=== PATIENT | female | born 1960 ===

== ENCOUNTER 2017-07-20 11:16 | Emergency (ER) | payer MEDICAID ==
[2017-07-20 11:16] VITALS: BMI 34.9
--- NOTE | 2017-07-20 12:12 | C.PDOC ---
History Of Present Illness Patient is a 57 year old female presents to Emergency Department for evaluation of vaginal itching, burning and white vaginal discharge for the past week. Notes using over the counter Monistat for 3 days with moderate relief. Patient also states that she has had dysuria and urinary frequency for the past few days , and also noticed blood in her urine yesterday. Denies fever, chills, abdominal pain, nausea, vomiting, diarrhea, or back pain. Time Seen by Provider: 07/20/17 11:47 Chief Complaint (Nursing): Female Genitourinary History Per: Patient History/Exam Limitations: no limitations Onset/Duration Of Symptoms: Days Current Symptoms Are (Timing): Still Present Associated Symptoms: Urinary Symptoms. denies: Loss Of Appetite, Back Pain, Chest Pain, Constipation Alleviating Factors: OTC Meds Recent travel outside of the [place]: No Additional History Per: Patient Abnormal Vaginal Bleeding: No Past Medical History Reviewed: Historical Data, Nursing Documentation, Vital Signs Vital Signs: Last Vital Signs Temp 98.3 F 07/20/17 13:03 Pulse 80 07/20/17 13:03 Resp 20 07/20/17 13:03 BP 107/71 07/20/17 13:03 Pulse Ox 99 07/20/17 13:03 - Medical History PMH: HTN Denies: Chronic Kidney Disease - [facility] Procedures CLOSED ENDOSCOPIC BIOPSY OF LARGE INTESTINE (10/02/14) Family History: States: Unknown Family Hx - Social History Hx Alcohol Use: No Hx Substance Use: No - Immunization History Hx Tetanus Toxoid Vaccination: No Hx Influenza Vaccination: No Hx Pneumococcal Vaccination: No Review Of Systems Except As Marked, All Systems Reviewed And Found Negative. Constitutional: Negative for: Fever, Chills Gastrointestinal: Negative for: Nausea, Vomiting, Abdominal Pain, Diarrhea Genitourinary: Positive for: Dysuria, Frequency, Hematuria, Vaginal Discharge ( white), Other (vaginal itching and burning sensation). Negative for: Vaginal Bleeding, Pelvic Pain Musculoskeletal: Negative for: Back Pain Physical Exam - Physical Exam Appears: Non-toxic, No Acute Distress Skin: Normal Color, Warm, Dry Head: Atraumatic, Normacephalic Eye(s): bilateral: Normal Inspection Oral Mucosa: Moist Neck: Normal ROM, Supple Chest: Symmetrical Cardiovascular: Rhythm Regular, No Murmur Respiratory: Normal Breath Sounds, No Rales, No Rhonchi, No Wheezing Gastrointestinal/Abdominal: Soft, No Tenderness, No Guarding, No Rebound Pelvic: Normal External Exam, No Vaginal Bleeding, No Vaginal Discharge, No Cervical Motion Tenderness, No Cervix Open (cervix closed), No Adnexal Tenderness Extremity: Normal ROM Neurological/Psych: Oriented x3, Normal Speech ED Course And Treatment O2 Sat by Pulse Oximetry: 98 (RA) Pulse Ox Interpretation: Normal Medical Decision Making Medical Decision Making: Plan: * GC culture, Gential culture, Urine culture * Urinalysis * Reassess and disposition Patient remained afebrile alert and oriented with stable vital signs during ER evaluation. UA shows UTI. Patient feels comfortable going home and will be discharged. Patient given follow up instructions. Instructed to return to ER if symptoms worsen or new symptoms arise. Disposition Counseled Patient/Family Regarding: Diagnosis, Need For Followup, Rx Given - [facility]position [facility] Disposition: HOME/ ROUTINE Disposition Time: 12:46 Condition: STABLE Additional Instructions: Christina por dejarnos atenderlo hoy. Martinez proveedor fue PA Kennedy. Usted fue tratado por alfa infeccin del tracto urinario. [place] antibiticos dos veces al d a norberto 5 louis. Por favor nisha un seguimiento con martinez gineclogo para alfa evaluacin adicional. Christina por permitir que el equipo de [email or web address] sea parte de martinez cuidado hoy. Prescriptions: Benzocaine/Resorcinol [Vagisil Cream] 28 gm TP BID #1 cream..g. Ciprofloxacin [Cipro] 1 tab PO BID #10 tab Instructions: Urinary Tract Infection in Women (ED) Forms: [employer] (American) Print Language: SLOVENIAN - POA Present On Arrival: None - Clinical Impression Clinical Impression: UTI (urinary tract infection), Vaginal itching - PA / ROLL ICER MACHINE / Resident Statement MD/DO has reviewed & agrees with the documentation as recorded. - Scribe Statement The provider has reviewed the documentation as recorded by the Marshall Sargent All medical record entries made by the Ricardoibemilie were at my direction and personally dictated by me. I have reviewed the chart and agree that the record accurately reflects my personal performance of the history, physical exam, medical decision making, and the department course for this patient. I have also personally directed, reviewed, and agree with the discharge instructions and disposition.
[2017-07-20 12:28] LABS: RBC URINE 352 /hpf (0-3); URINE BILIRUBIN NEGATIVE (NEGATIVE); URINE BLOOD 3+ (NEGATIVE); URINE COLOR Yellow (YELLOW); URINE GLUCOSE (UA) NORMAL (Normal); URINE KETONE 1+ mg/dL (NEGATIVE); URINE LEUKOCYTE ESTERASE 3+ Leu/uL (Negative); URINE PROTEIN 2+ mg/dL (NEGATIVE); URINE UROBILINOGEN NORMAL mg/dL (0.2-1.0); WBC URINE 488 /hpf (0-5)
[2017-07-20 12:30] LABS: URINE BACTERIA FEW (<OCC)
[2017-07-20 13:04] VITALS: BP 107/71; PULSE 80; RESP 20; TEMP 98.3
[2017-07-20 16:48] VITALS: O2SAT 98
== END 2017-07-20 13:04 | disposition home or self-care (01) ==
LOC: C.ER 11:16
DX: N39.0 Urinary tract infection, site not specified (principal); L29.8 Other pruritus

== ENCOUNTER 2018-09-15 09:38 | Emergency (ER) | payer MEDICAID ==
[2018-09-15 09:39] VITALS: BMI 34.9
--- NOTE | 2018-09-15 10:46 | C.PDOC ---
History Of Present Illness 58 year old female with past medical history of hypertension and arthritis presents to the Emergency Department c/o palpitations x 1 month. She has been experiencing daily episodes of palpitations that last about a minute at a time described as a rapid heart rate. No associated pain or shortness of breath. Nothing specific seems to bring on these episodes. Last episode this morning. Patient has seen her primary doctor for these complaints but has never seen a mastic floor layer. No current physical complaints. Denies fever, chills, chest pain, dizziness, headache, abdominal pain, shortness of breath, cough, vision changes, urinary symptoms, weakness, numbness, paresthesia, or any other associated complaints. Time Seen by Provider: 09/15/18 09:50 Chief Complaint (Nursing): Palpitations History Per: Patient History/Exam Limitations: no limitations Past Medical History Reviewed: Historical Data, Nursing Documentation, Vital Signs Vital Signs: Last Vital Signs Temp 98.3 F 09/15/18 09:42 Pulse 82 09/15/18 09:42 Resp 18 09/15/18 09:42 BP 163/81 H 09/15/18 09:42 Pulse Ox 96 09/15/18 09:42 - Medical History PMH: Arthritis, HTN Denies: Chronic Kidney Disease - [facility] Procedures CLOSED ENDOSCOPIC BIOPSY OF LARGE INTESTINE (10/02/14) Family History: States: Unknown Family Hx - Social History Hx Alcohol Use: No Hx Substance Use: No - Immunization History Hx Tetanus Toxoid Vaccination: No Hx Influenza Vaccination: No Hx Pneumococcal Vaccination: No Review Of Systems Except As Marked, All Systems Reviewed And Found Negative. Constitutional: Negative for: Fever, Chills Eyes: Negative for: Pain ENT: Negative for: Nose Congestion, Throat Pain Cardiovascular: Positive for: Palpitations. Negative for: Chest Pain, Orthopnea, Light Headedness Respiratory: Negative for: Cough, Shortness of Breath, Hemoptysis Gastrointestinal: Negative for: Nausea, Vomiting, Abdominal Pain Genitourinary: Negative for: Dysuria, Frequency, Vaginal Discharge, Vaginal Ble eding Musculoskeletal: Negative for: Neck Pain, Back Pain Skin: Negative for: Rash Neurological: Negative for: Weakness, Numbness, Headache, Dizziness Physical Exam - Physical Exam Appears: Well, Non-toxic, No Acute Distress Skin: Normal Color, Warm, Dry Head: Atraumatic, Normacephalic, No Tenderness Eye(s): bilateral: Normal Inspection, PERRL, EOMI Ear(s): Bilateral: Normal Nose: Normal Throat: Normal Neck: Normal, Normal ROM Lymphatic: Normal Exam Chest: Symmetrical, No Deformity, No Tenderness Cardiovascular: Rhythm Regular Respiratory: Normal Breath Sounds Gastrointestinal/Abdominal: Normal Exam, Bowel Sounds (normal), Soft, No Tenderness Back: Normal Inspection, No CVA Tenderness Extremity: Normal ROM, No Tenderness, No Pedal Edema, Capillary Refill (<2s), No Deformity, No Swelling Extremity: Bilateral: Atraumatic, No Pedal Edema, Normal Color And Temperature, Normal ROM Pulses: Left Radial: Normal, Right Radial: Normal, Left Dorsalis Pedis: Normal, Right Dorsalis Pedis: Normal Neurological/Psych: Oriented x3, Normal Speech, Normal Cognition, Normal Motor, Normal Sensation Gait: Steady ED Course And Treatment - Laboratory Results Result Diagrams: 09/15/18 10:48 09/15/18 10:48 Lab Interpretation: Abnormal ECG: Viewed By Me ECG Rhythm: Sinus Rhythm Interpretation Of ECG: rate 81; nsr; prolonged QT; no STEMI; nonspecific t wave changes Rate From EC O2 Sat by Pulse Oximetry: 96 Pulse Ox Interpretation: Normal - Radiology CXR: Viewed By Me, Read By Radiologist CXR Interpretation: Yes: No Acute Disease Medical Decision Making Medical Decision Making: Initial Plan: * CBC, CMP * Mg, Phos * Coags * Troponin * UA * EKG * CXR * IVF Troponin 0.02. Will admit for cardiac monitoring and trending of EKG and troponin. Case discussed with ED attending, Dr. Wagner, who agrees with plan of care and disposition. Patient does not wish to stay, would like to leave against medical advice. States she will followup with her primary doctor this afternoon. Risks of leaving AMA explained to patient, including , disability, and worsening of symptoms. Patient verbalized understanding of risks of leaving and benefits of staying in the hospital. Patient given opportunity to ask questions. Continues to ask to leave AMA. Diagnostic testing results and plan of care discussed with patient, and strict instructions given regarding prescriptions, importance of follow up, and signs to return to Emergency Department, to include chest pain, SOB, or any other new/worsening symptoms. Patient verbalizes understanding of discussion. Patient A&Ox3, ambulating with steady gait, stable for discharge home. Patient signed out AMA, witnessed by nurse Duque. Given antibiotic for possible UTI and followup with mastic floor layer. Disposition - Disposition Referrals: Telma Romero MD [Staff Provider] - Disposition: AGAINST MEDICAL ADVICE Disposition Time: 12:40 Condition: STABLE Additional Instructions: Followup with primary doctor tomorrow Take antibiotics as prescribed Return to ER with any new/worsening of symptoms or if you wish to be re- evaluated Prescriptions: Cephalexin [cephalexin] 500 mg PO Q12 #14 cap Instructions: Palpitations, Urinary Tract Infection, Adult (DC), Leaving Against Medical Advice Forms: General Discharge Instructions, [facility] (Serbian), Work Excuse Print Language: JAPANESE - Clinical Impression Clinical Impression: Palpitations, UTI (urinary tract infection)
[2018-09-15 10:53] LABS: BASO % 0.6 % (0.0-2.0); EOS % 0.7 % (0.0-4.0); HEMOGLOBIN 13.1 g/dL (11.0-16.0); LYMPH # 1.6 K/uL (1.0-4.3); LYMPH % 35.1 % (20.0-40.0); MEAN CELL VOLUME 90.8 fL (81.0-99.0); MEAN CORPUSCULAR HEMOGLOBIN 31.1 pg (27.0-31.0); MEAN CORPUSCULAR HGB CONC 34.3 g/dL (33.0-37.0); MEAN PLATELET VOLUME 10.3 fL (7.2-11.7); MONO # 0.4 K/uL (0.0-0.8); MONO % 8.4 % (0.0-10.0); NEUT # 2.5 K/uL (1.8-7.0); NEUT % 55.2 % (50.0-75.0); RBC 4.21 Mil/uL (3.80-5.20); WHITE BLOOD COUNT 4.6 K/uL (4.8-10.8)
[2018-09-15 10:55] VITALS: PULSE 76
[2018-09-15 11:03] LABS: SQUAMOUS EPITHIAL < 1 /hpf (0-5); URINE BACTERIA RARE (<OCC); URINE BILIRUBIN NEGATIVE (NEGATIVE); URINE BLOOD 1+ (NEGATIVE); URINE CLARITY Clear (Clear); URINE COLOR Straw (YELLOW); URINE GLUCOSE (UA) NORMAL (Normal); URINE LEUKOCYTE ESTERASE 1+ Leu/uL (Negative); URINE PROTEIN NEGATIVE (NEGATIVE); URINE UROBILINOGEN NORMAL mg/dL (0.2-1.0)
[2018-09-15 11:03] LABS: INR 1.1; PROTHROMBIN TIME 12.1 SECONDS (9.7-12.2)
[2018-09-15 11:04] LABS: ALB/GLOB RATIO 1.5 (1.0-2.1); ALT/SGPT 36 U/L (9-52); AST/SGOT 22 U/L (14-36); BLOOD UREA NITROGEN 22 mg/dL (7-17); CALCIUM 8.8 mg/dl (8.6-10.4); GFR NON-AFRICAN AMERICAN > 60
[2018-09-15] MEDS ORDERED: Potassium Chloride 20 mEq ER Tab PO STA (11:05)
[2018-09-15] MEDS ORDERED: Sodium Chloride 0.9% 500 ML IV ONE (11:06)
--- NOTE | 2018-09-15 11:09 | RAD ---
HISTORY: palpitations COMPARISON: None available TECHNIQUE: Chest, one view. FINDINGS: Examination limited by habitus and hypoinflation. LUNGS: No focal consolidation. Please note that chest x-ray has limited sensitivity for the detection of pulmonary masses. PLEURA: No significant pleural effusion identified. No definite pneumothorax . CARDIOVASCULAR: Heart size appears within normal limits. Ectatic aorta. Atherosclerotic calcifications present. OSSEOUS STRUCTURES: 2 indeterminate sclerotic foci within the right humeral head, possibly bone islands. Degenerative changes. VISUALIZED UPPER ABDOMEN: Unremarkable. OTHER FINDINGS: None. IMPRESSION: Hypoinflation. No focal consolidation.
[2018-09-15] MEDS ORDERED: Potassium Chloride 20 mEq ER Tab PO ONE (11:12)
[2018-09-15 12:56] VITALS: BP 167/83; RESP 16; TEMP 98.6
[2018-09-16 03:39] VITALS: O2SAT 96
--- NOTE | 2018-09-16 12:06 | CARD ---
APPROVED REPORT Date of service: 09/15/2018 EKG Measurement Heart [id number] <Conclusion> Normal sinus rhythm Nonspecific ST abnormality Prolonged QT Abnormal ECG
== END 2018-09-15 12:56 | disposition left against medical advice (07) ==
LOC: C.ER 09:38
DX: R00.2 Palpitations (principal); N39.0 Urinary tract infection, site not specified; I10 Essential (primary) hypertension; M19.90 Unspecified osteoarthritis, unspecified site
CPT/HCPCS: 71045; 80053; 81001; 83735; 84100; 84484; 85025; 85610; 85730; 87086; 87181; 93005; 99285; J7040